=== PATIENT | male | born 1940 | race Caucasian/White ===

== ENCOUNTER 2017-12-25 16:47 | Observation (INO) | payer MEDICARE, OTHER ==
[2017-12-25] MEDS ORDERED: Ondansetron 4 MG/2 ML SDV IVPUSH ONE (16:56)
[2017-12-25] MEDS ORDERED: Sodium Chloride 0.9% 1,000 ML IV SCH ×2 (17:00→19:15)
[2017-12-25 17:35] LABS: CHLORIDE,CL 100 mmol/L (98-107); SODIUM,NA 140 mmol/L (136-145)
[2017-12-25] MEDS ORDERED: cefTRIAXone 1 GM Vial IVPUSH ONE (18:08)
[2017-12-25] MEDS ORDERED: Sodium Chloride 0.9% 10 ML Syringe FLUSH PRN (19:06)
[2017-12-25] MEDS ORDERED: Iopamidol 612 MG/ML 100 ML Bottle IVPUSH ONE (19:10)
--- NOTE | 2017-12-25 19:55 | EDM.PDOC ---
ED HPI GENERAL MEDICAL PROBLEM - General Chief Complaint: Fever Stated Complaint: nausea/vomiting Time Seen by Provider: 12/25/17 16:54 Source of Information: Reports: Patient, Family History Limitations: Reports: No Limitations - History of Present Illness INITIAL COMMENTS - FREE TEXT/NARRATIVE: Patient comes in this evening via EMS with complaints of nausea and vomiting over the last 2 days fell last Saturday after tripping over a step, and he did fall again today after tripping as well. He denies any confusion, shortness of breath, chest pain, headache, no recent emesis. His primary provider doctor is Niecy Whitlock. He did tell me this evening that he's got a CT scan to observe his AAA. He does not have any abdominal pain at this time. He does have.a history of diverticulitis which was treated with Flagyl and Cipro back in September and October 2017. He feels that he's been having some chills as well as some diaphoresis the last couple of days as well. He denies having any recent contact in the ill people. Denies any smoking, drug use, or alcohol use. Onset Date: 12/23/17 Duration: Getting Worse Severity: Moderate - Related Data Allergies Allergy/AdvReac Type Severity Reaction Status Date / Time bacitracin Allergy Cannot Verified 12/25/17 17:58 [From Neosporin Remember ([id number])] cephalexin Allergy Cannot Verified 12/25/17 17:58 Remember neomycin Allergy Cannot Verified 12/25/17 17:58 [From Neosporin Remember ([id number])] peanut Allergy Cannot Verified 12/25/17 17:59 Remember Penicillins Allergy Cannot Verified 12/25/17 17:58 Remember polymyxin B Allergy Cannot Verified 12/25/17 17:58 [From Neosporin Remember ([id number])] sitagliptin [From Januvia] Allergy Cannot Verified 12/25/17 17:58 Remember Social & Family History - Tobacco Use Smoking Status *Q: Never Smoker - Recreational Drug Use Recreational Drug Use: No ED ROS GENERAL - Review of Systems Review Of Systems: See Below Constitutional: Reports: Fever, Chills HEENT: Reports: No Symptoms Respiratory: Reports: No Symptoms Cardiovascular: Reports: No Symptoms Endocrine: Reports: No Symptoms GI/Abdominal: Reports: Diarrhea, Nausea, Vomiting : Reports: Incontinence Musculoskeletal: Reports: No Symptoms Skin: Reports: Diaphoresis Neurological: Reports: Weakness Psychiatric: Reports: No Symptoms Hematologic/Lymphatic: Reports: No Symptoms Immunologic: Reports: No Symptoms ED EXAM, GENERAL - Physical Exam Exam: See Below Exam Limited By: No Limitations General Appearance: Alert, WD/WN, Mild Distress Eye Exam: Bilateral Eye: EOMI, Normal Inspection, PERRL Ears: Normal TMs Nose: Normal Inspection, Normal Mucosa, No Blood Throat/Mouth: Other (oral mucosa dry) Head: Atraumatic, Normocephalic Neck: Normal Inspection, Supple, Non-Tender, Full Range of Motion Respiratory/Chest: No Respiratory Distress, Lungs Clear, Normal Breath Sounds, No Accessory Muscle Use, Chest Non-Tender Cardiovascular: Normal Peripheral Pulses, Regular Rate, Rhythm, No Edema, No Gallop, No JVD, No Murmur, No Rub Peripheral Pulses: 2+: Posterior Tibial (L), Posterior Tibial (R), Dorsalis Pedis (L), Dorsalis Pedis (R) GI/Abdominal: Normal Bowel Sounds, Soft, Non-Tender, No Mass, Distended Back Exam: Normal Inspection, Full Range of Motion, NT Extremities: Normal Inspection, Normal Range of Motion, Non-Tender, Normal Capillary Refill, No Pedal Edema Neurological: Alert, Oriented, CN II-XII Intact, Normal Cognition, Normal Gait, Normal Reflexes, No Motor/Sensory Deficits Psychiatric: Normal Affect, Normal Mood Skin Exam: Warm, Dry, Intact, Normal Color, No Rash Lymphatic: No Adenopathy Course - Vital Signs Last Recorded V/S: Last Vital Signs Temp 38.8 C H 12/25/17 16:50 Pulse 87 12/25/17 16:50 Resp 16 12/25/17 16:50 BP 112/54 L 12/25/17 16:50 Pulse Ox 92 L 12/25/17 16:50 - Orders/Labs/Meds Orders: Active Orders 24 hr Category Date Time Status Chest 1V Frontal [CR] Stat Exams 12/25/17 17:24 Taken Hip Min 2V or 3V w Pelvis Lt [CR] Stat Exams 12/25/17 17:03 Taken CULTURE BLOOD [BC] Stat Lab 12/25/17 18:35 Received CULTURE BLOOD [BC] Stat Lab 12/25/17 18:45 Received CULTURE URINE [RM] Stat Lab 12/25/17 17:24 Received Sodium Chloride 0.9% [Normal Saline] 1,000 ml Med 12/25/17 17:00 Active IV ASDIRECTED Blood Culture x2 Reflex Set [OM.PC] Stat Oth 12/25/17 17:24 Ordered Medication Orders Sodium Chloride (Normal Saline) 1,000 mls @ 999 mls/hr IV ASDIRECTED JAM Last Admin: 12/25/17 17:00 Dose: 999 mls/hr Sodium Chloride (Normal Saline) 1,000 mls @ 75 mls/hr IV ASDIRECTED JAM Last Admin: 12/25/17 19:05 Dose: 75 mls/hr Sodium Chloride (Saline Flush) 10 ml FLUSH ASDIRECTED PRN PRN Reason: Keep Vein Open Labs: Laboratory Tests 12/25/17 12/25/17 12/25/17 Range/Units 17:05 17:05 17:05 WBC 13.1 H (4.0-10.0) x10^3/uL RBC 4.34 L (4.5-6.0) x10^6/uL Hgb 13.5 L (14.0-18.0) g/dL Hct 39.7 L (40.0-52.0) % MCV 91.5 (78.0-93.0) fL MCH 31.1 (26.0-32.0) pg MCHC 34.0 (32.0-36.0) g/dL RDW Coeff of [place] 13.7 (10.0-15.0) % Plt Count 128 L (130-400) x10^3/uL Neut % (Auto) 86.5 H (50.0-80.0) % Lymph % (Auto) 5.2 L (25.0-50.0) % Maries % (Auto) 8.1 (2.0-11.0) % Eos % (Auto) 0.1 (0.0-4.0) % Baso % (Auto) 0.1 L (0.2-1.2) % PT (9.8-11.8) SEC INR (2.0-3.5) Sodium 140 (136-145) mmol/L Potassium 3.5 (3.5-5.1) mmol/L Chloride 100 (98-107) mmol/L Carbon Dioxide 28 (21-32) mmol/L BUN 25 H (7-18) mg/dL Creatinine 1.2 (0.70-1.30) mg/dL Est Cr Clr Drug Dosing TNP Estimated GFR (MDRD) 59 Glucose 156 H (74-106) mg/dL Lactic Acid 2.2 H* (0.4-2.0) mmol/L Calcium 8.5 (8.5-10.1) mg/dL Corrected Calcium 9.06 (8.5-10.1) mg/dL Total Bilirubin 1.3 H (0.2-1.0) mg/dL AST 101 H (15-37) U/L ALT 107 H (16-63) U/L Alkaline Phosphatase 124 H (46-116) U/L Troponin I (<=0.056) ng/mL C-Reactive Protein (<=0.9) mg/dL NT-Pro-B Natriuret Pep (<=450) pg/mL Total Protein 7.1 (6.4-8.2) g/dL Albumin 3.3 L (3.4-5.0) g/dL Globulin 3.8 Albumin/Globulin Ratio 0.87 Amylase (25-115) U/L Lipase (73-393) U/L 12/25/17 12/25/17 12/25/17 Range/Units 17:05 17:05 17:05 WBC (4.0-10.0) x10^3/uL RBC (4.5-6.0) x10^6/uL Hgb (14.0-18.0) g/dL Hct (40.0-52.0) % MCV (78.0-93.0) fL MCH (26.0-32.0) pg MCHC (32.0-36.0) g/dL RDW Coeff of [place] (10.0-15.0) % Plt Count (130-400) x10^3/uL Neut % (Auto) (50.0-80.0) % Lymph % (Auto) (25.0-50.0) % Maries % (Auto) (2.0-11.0) % Eos % (Auto) (0.0-4.0) % Baso % (Auto) (0.2-1.2) % PT 12.6 H (9.8-11.8) SEC INR 1.2 L (2.0-3.5) Sodium (136-145) mmol/L Potassium (3.5-5.1) mmol/L Chloride (98-107) mmol/L Carbon Dioxide (21-32) mmol/L BUN (7-18) mg/dL Creatinine (0.70-1.30) mg/dL Est Cr Clr Drug Dosing Estimated GFR (MDRD) Glucose (74-106) mg/dL Lactic Acid (0.4-2.0) mmol/L Calcium (8.5-10.1) mg/dL Corrected Calcium (8.5-10.1) mg/dL Total Bilirubin (0.2-1.0) mg/dL AST (15-37) U/L ALT (16-63) U/L Alkaline Phosphatase (46-116) U/L Troponin I 0.027 (<=0.056) ng/mL C-Reactive Protein 28.3 H (<=0.9) mg/dL NT-Pro-B Natriuret Pep 1531 H (<=450) pg/mL Total Protein (6.4-8.2) g/dL Albumin (3.4-5.0) g/dL Globulin Albumin/Globulin Ratio Amylase 19 L (25-115) U/L Lipase 44 L (73-393) U/L Meds: Medications Generic Name Dose Route Start Last Admin Trade Name Freq PRN Reason Stop Dose Admin Sodium Chloride 1,000 mls @ 999 mls/hr 12/25/17 17:00 12/25/17 17:00 Normal Saline IV 999 mls/hr ASDIRECTED JAM Administration Sodium Chloride 1,000 mls @ 75 mls/hr 12/25/17 19:15 12/25/17 19:05 Normal Saline IV 75 mls/hr ASDIRECTED JAM Administration Sodium Chloride 10 ml 12/25/17 19:06 Saline Flush FLUSH ASDIRECTED PRN Keep Vein Open Discontinued Medications Generic Name Dose Route Start Last Admin Trade Name Freq PRN Reason Stop Dose Admin Ceftriaxone Sodium 1 gm 12/25/17 18:08 12/25/17 18:41 Rocephin IVPUSH 12/25/17 18:09 1 gm ONETIME ONE Administration Vancomycin HCl 1,750 mg/ 250 mls @ 143 mls/hr 12/25/17 18:07 12/25/17 19:05 Sodium Chloride IV 12/25/17 19:51 143 mls/hr ONETIME ONE Administration Iopamidol 100 ml 12/25/17 19:10 12/25/17 19:15 Isovue-300 (61%) IVPUSH 12/25/17 19:11 100 ml ONETIME ONE Administration Ondansetron HCl 4 mg 12/25/17 16:56 12/25/17 18:46 Zofran IVPUSH 12/25/17 16:57 4 mg ONETIME ONE Administration - Re-Assessments/Exams Free Text/Narrative Re-Assessment/Exam: 12/25/17 20:36 CT shows no diverticulitis, some diverticulosis, possible enteritis Departure - Departure Time of Disposition: 19:40 Disposition: Refer to Observation Condition: Fair Clinical Impression: Gastroenteritis - Discharge Information - Problem List & Annotations (1) Gastroenteritis SNOMED Code(s): 13595720 Code(s): K52.9 - NONINFECTIVE GASTROENTERITIS AND COLITIS, UNSPECIFIED Status: Acute Priority: Medium Current Visit: Yes - Problem List Review Problem List Initiated/Reviewed/Updated: Yes - My Orders Last 24 Hours: My Active Orders 12/25/17 17:00 Sodium Chloride 0.9% [Normal Saline] 1,000 ml IV ASDIRECTED 12/25/17 17:03 Hip Min 2V or 3V w Pelvis Lt [CR] Stat 12/25/17 17:24 Chest 1V Frontal [CR] Stat CULTURE URINE [RM] Stat Blood Culture x2 Reflex Set [OM.PC] Stat 12/25/17 18:35 CULTURE BLOOD [BC] Stat 12/25/17 18:45 CULTURE BLOOD [BC] Stat - Assessment/Plan Last 24 Hours: My Active Orders 12/25/17 17:00 Sodium Chloride 0.9% [Normal Saline] 1,000 ml IV ASDIRECTED 12/25/17 17:03 Hip Min 2V or 3V w Pelvis Lt [CR] Stat 12/25/17 17:24 Chest 1V Frontal [CR] Stat CULTURE URINE [RM] Stat Blood Culture x2 Reflex Set [OM.PC] Stat 12/25/17 18:35 CULTURE BLOOD [BC] Stat 12/25/17 18:45 CULTURE BLOOD [BC] Stat Assessment:: gastroenteritis Plan: 1. Admit for fluid resuscitation 2. PT/OT for ADL and strengthening 3. IV antibiotic coverage initial
[2017-12-26] MEDS ORDERED: Hydrochlorothiazide 25 MG Tab PO SCH (08:00)
[2017-12-26] MEDS ORDERED: Non-Formulary Medication 1 Each (Canagliflozin [Invokana] 300 MG) PO SCH (08:00)
[2017-12-26] MEDS ORDERED: metFORMIN 500 MG Tab PO SCH (08:00)
[2017-12-26] MEDS ORDERED: Finasteride 5 MG Tab PO SCH (08:00)
[2017-12-26] MEDS ORDERED: Glimepiride 2 MG Tab PO SCH (08:00)
[2017-12-26 09:20] LABS: CHLORIDE,CL 101 mmol/L (98-107); SODIUM,NA 138 mmol/L (136-145)
[2017-12-26] MEDS ORDERED: Omeprazole 20 MG Cap.CR PO SCH (20:00)
--- NOTE | 2017-12-27 03:33 | DISCH ---
PRIMARY DISCHARGE DIAGNOSES: 1. Abdominal bloating, vomiting due to gastroenteritis. 2. Generalized weakness, possibly due to the gastroenteritis. 3. Left hip and hamstring pain, likely due to a mild strain. The patient was seen by PT and he was moving okay. 4. 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 5. Obesity. 6. Gastroesophageal reflux disease. 7. History of hyperlipidemia. 8. History of BPH with urinary retention. 9. Hypertriglyceridemia. 10.History of gallstones with previous attacks in 1994 and 2010. 11.History of gout. 12.History of arthritis of the knee. 13.History of mild iliac artery aneurysm. Discussed with Radiology. No major aneurysms noted during CT. REASON FOR ADMISSION: On the date of admission, this 77-year-old male was down at home. His could not get him up. He had some nausea and vomiting over the last couple days. They called the ambulance. When he arrived at the hospital, he was found to have a white count of 13.1. He has had a 102 temp. He was given IV fluids. He was felt to be in sepsis with a lactic acid of 2.2. He did not have an elevated lipase. His proBNP was mildly elevated at 1531. His liver enzymes were also elevated at AST 101, ALT 107, and they did trend down during his stay. He denied any significant abdominal pain, just felt more bloated. He was having some soft stools, but really no diarrhea. By the next morning, he was eating breakfast. He tolerated it without problems. He was feeling better. He had underwent a CT which ruled out diverticulitis. He had a similar episode last fall and clinically was felt to have diverticulitis, so was treated with antibiotics at this time. However, this time the CT ruled that out. [place] it could have been an ileus or enteritis. His lactic acid did trend down. He tolerated his lunch meal. He was up working with therapies. His CRP was elevated to 28.3, but antibiotics were not continued on discharge. He did get and tolerate Rocephin even though he carries the Keflex allergy. He also got vanc. He had no further fevers. His potassium was mildly low at 3.4. Also, his AST was down to 86, ALT was 87 on discharge. PHYSICAL EXAMINATION: Vital Signs: Discharge vitals include a temperature 98.2, pulse 70, blood pressure 111/67, respiratory rate 18, O2 of 97% on room air. General: He is in no acute distress. Heart: Regular rate and rhythm with murmur. Lungs: Lungs sounds are clear to auscultation bilaterally without crackles or wheezes. Abdomen: Has positive bowel sounds. It is soft and nontender. Extremities: Warm and dry. No edema. Mental Status: He is alert and orientated x3. DISCHARGE PLANS AND INSTRUCTIONS: He will follow up in the clinic with Dr. Whitlock on 01/07. He should have his fasting lab work for diabetes before that, which will include a CMP to check liver enzymes. He will also have a microalbumin, so I will also repeat a UA to check for hematuria. He had no white cells in his urine, just blood with 5 to 10 rbc's. He will hold Invokana and metformin for the next 2 days, then resume. No antibiotics prescribed on discharge. He was encouraged to have a clear liquid diet or soft foods and reintroduce other foods gradually. He is supposed to drink plenty of water. Otherwise, could consider repeating ultrasound for gallstones again given his past history and the recurrent bouts that he has had, although there was no cholecystitis appreciated, although his CT was done and not an ultrasound. He also did not have any right upper quadrant abdominal discomfort. MKA: 12/26/2017 17:18:42 MODL: 12/27/2017 03:23:38 /[id number]
== END 2017-12-26 14:37 | disposition home or self-care (01) ==
LOC: VM.ED 16:47 → VM.MS 17:45
PROVIDERS: ADMIT Nurse Practitioner Family; ATTEND Nurse Practitioner Family
DX: K52.9 Noninfective gastroenteritis and colitis, unspecified (principal); R14.0 Abdominal distension (gaseous); R11.10 Vomiting, unspecified; R53.1 Weakness; E11.40 Type 2 diabetes mellitus with diabetic neuropathy, unspecified; E66.9 Obesity, unspecified; K21.9 Gastro-esophageal reflux disease without esophagitis; E78.5 Hyperlipidemia, unspecified; N40.1 Benign prostatic hyperplasia with lower urinary tract symptoms; Z79.84 Long term (current) use of oral hypoglycemic drugs; Z88.1 Allergy status to other antibiotic agents; Z88.0 Allergy status to penicillin; Z91.010 Allergy to peanuts; Z88.8 Allergy status to other drugs, medicaments and biological substances
CPT/HCPCS: 36415; 71045; 74177; 80053; 81001; 82150; 83605; 83690; 83880; 84484; 85025; 85610; 86140; 87040; 87086; 87804; 96361; 96365; 96367; 96375; 97161-GP; 99284-GF; 99285; A9270-GY; G0378; J0696; J2405; J3370; J7030; J7050; Q9967

== ENCOUNTER 2024-06-19 06:23 | Day surgery (SDC) | payer MEDICARE, OTHER ==
[2024-06-19] MEDS: Lactated Ringers 1,000 ML IV SCH (06:47)
[2024-06-19] MEDS ORDERED: Propofol 200 MG/20 ML SDV ONE ×2 (07:48→08:11)
[2024-06-19] MEDS ORDERED: fentaNYL 100 MCG/2 ML SDV ONE (07:48)
== END 2024-06-19 10:00 | disposition home or self-care (01) ==
LOC: VM.SDS 06:23
PROVIDERS: ATTEND Student in an Organized Health Care Education/Training Program
DX: D12.2 Benign neoplasm of ascending colon (principal); D12.5 Benign neoplasm of sigmoid colon; D12.8 Benign neoplasm of rectum; E11.9 Type 2 diabetes mellitus without complications; N40.0 Benign prostatic hyperplasia without lower urinary tract symptoms; I10 Essential (primary) hypertension; E66.9 Obesity, unspecified; G47.33 Obstructive sleep apnea (adult) (pediatric); Z79.899 Other long term (current) drug therapy; Z88.0 Allergy status to penicillin; Z91.010 Allergy to peanuts; Z86.010 Personal history of colon polyps
CPT/HCPCS: 45380; 45385; 82947; J2704; J3010; J7120; 00812; 88305; 99100